=== PATIENT | male | born 1995 | race Caucasian/White ===

== ENCOUNTER 2016-12-27 20:21 | Emergency (ER) | payer OTHER ==
--- NOTE | 2016-12-27 21:40 | ER NURSING DOCUMENTATION ---
Nurse's Notes [facility] Name:Gareth Jean Age:21 yrs Sex:Male :1995 Arrival Date:12/27/2016 Time:20:21 Bed6 Private MD:Physician, No Diagnosis:Lower Extremity Pain Presentation: 12/27 20:27 Presenting complaint: Patient states: Left holden pain for 8 days without trauma. cb Transition of care: Home. 20:27 Method Of Arrival: Private Vehicle cb 20:27 Acuity: DAJA 4 cb Triage Assessment: 20:31 General: Appears in no apparent distress, well groomed, Behavior is cooperative. Pain: cb Complains of pain in right holden Pain currently is 6 out of 10 on a pain scale. Alleviated by rest, Aggravated by exercise, increased activity. EENT: No deficits noted. Neuro: Level of Consciousness is awake, alert, Oriented to person, place, time, event. Cardiovascular: Pulses are 2+ in left dorsalis pedis artery. Respiratory: Airway is patent Trachea midline Respiratory effort is even, unlabored, Respiratory pattern is regular, symmetrical. GI: Reports tolerance of fluids, tolerance of food. : No deficits noted. Derm: No deficits noted. Injury Description: none injury. Historical: - Allergies: No known drug Allergies; - Home Meds: 1. None - PMHx: HEADACHES; - PSHx: wisdom teeth ; broken leg (2009); - Tetanus: < 10 years. - Ebola Screening: : Patient negative for fever greater than or equal to 101.5 degrees Fahrenheit, and additional compatible Ebola Virus Disease symptoms. Patient denies exposure to infectious person. Patient denies travel to an Ebola-affected area in the 21 days before illness onset. No symptoms or risks identified at this time. . - Immunization history: Flu Vaccine < 1 year. - Social history: Smoking status: Patient states was never smoker of tobacco. Patient/guardian denies using marijuana. Screenin:35 Infectious Disease Risk None. Abuse screen: Denies threats or abuse. Denies injuries cb from another. Nutritional screening: No deficits noted. Vital Signs: 20:29 BP 140 / 80; Pulse 72; Resp 12; Temp 98.6(O); Pulse Ox 95% on R/A; Weight 83.91 kg (R); arc Height 6 ft. 1 in. (185.42 cm) (R); Pain 6/10; 20:29 Body Mass Index 24.41 (83.91 kg, 185.42 cm) arc ED Course: 20:25 Patient arrived in ED. em2 20:25 Physician, No is Private Physician. em2 20:27 Elana Anton, RN is Primary Nurse. cb 20:28 Triage completed. cb 20:35 Valuables Remains with patient Patient has correct armband on for positive cb identification. Bed in low position. Call light in reach. 20:36 Maximo Dorado MD is Attending Physician. dorothea 20:41 Port Xray Completed. pm1 21:14 Mamadou Ly MD, Vijay Dotson DO is Referral Physician. dorothea Administered Medications: No medications were administered Outcome: 21:14 Discharge ordered by . 21:38 Discharged to home ambulatory. bw2 21:38 Condition: good 21:38 Discharge Assessment: Patient awake, alert and oriented x 3. No cognitive and/or functional deficits noted. Patient verbalized understanding of disposition instructions. 21:38 Discharge instructions given to patient, Instructed on discharge instructions, follow up and referral plans. [facility] Demonstrated understanding of instructions. 21:39 Patient left the ED. bw2 12/28 12:11 Discharge F/U Call: Unable to reach: no answer lp Signatures: Elana Anton, RN Rebecca Perez cb, RN RN lp Maximo Dorado MD MD jm McBride, Philisha pm1 Meinking-reg, Alissa-reg em2 Argelia Jimenez, Reg Reg Nikki Olguin bw2
--- NOTE | 2016-12-27 21:40 | ER PHYSICIAN DOCUMENTATION ---
Physician Documentation [facility] Name:Gareth Jean Age:21 yrs Sex:Male :1995 Arrival Date:12/27/2016 Time:20:21 Bed6 Private MD:Physician, No ED Maximo Block Disposition: 12/27/16 21:14 Discharged to Home/Self Care. Impression: Lower Extremity Pain. - Condition is Good. - Medical Reconciliation form form. - Follow up: Mamadou Ly MD, Vijay Dotson DO; When: 1 - 2 days; Reason: Continuance of care. - Problem is an ongoing problem. - Symptoms are unchanged. - Notes: I feel you either have holden splints or a stres fracture. Follow up with Dr. Ly or Dr. Dotson. Ice, elevate and rest. Use ibuprofen for pain. HPI: 12/27 21:00 This 21 yrs old Unknown Male presents to ER via Private Vehicle with complaints of Leg jm Pain - left. 21:00 The patient presents with pain. The complaints affect the right holden. Context: the jm patient can fully bear weight, the patient is able to ambulate. Onset: The symptom(s)/episode began/occurred 8 day(s) ago. PT did a 10 mile hike and had some pain in his holden after. Pt continues to have pain in that holden. No injury. Pt swelling. No fever. . Historical: - Allergies: No known drug Allergies; - Home Meds: 1. None - PMHx: HEADACHES; - PSHx: wisdom teeth ; broken leg (2009); - Tetanus: < 10 years. - Ebola Screening: : Patient negative for fever greater than or equal to 101.5 degrees Fahrenheit, and additional compatible Ebola Virus Disease symptoms. Patient denies exposure to infectious person. Patient denies travel to an Ebola-affected area in the 21 days before illness onset. No symptoms or risks identified at this time. . - Immunization history: Flu Vaccine < 1 year. - Social history: Smoking status: Patient states was never smoker of tobacco. Patient/guardian denies using marijuana. ROS: 21:00 MS/extremity: Positive for tenderness, Negative for swelling. 21:00 Skin: Negative for cellulitis. Exam: 21:00 Constitutional: The patient appears alert, awake, comfortable. 21:00 Musculoskeletal/extremity: Extremities: grossly normal except: noted in the right holden: There is no evidence of decreased ROM, ecchymosis, erythema, pain, swelling, tenderness, ROM: intact in all extremities, Weight bearing: able to fully bear weight. 21:00 Skin: Appearance: normal except for affected area, cellulitis, is not appreciated. Vital Signs: 20:29 BP 140 / 80; Pulse 72; Resp 12; Temp 98.6(O); Pulse Ox 95% on R/A; Weight 83.91 kg (R); arc Height 6 ft. 1 in. (185.42 cm) (R); Pain 6/10; 20:29 Body Mass Index 24.41 (83.91 kg, 185.42 cm) arc MDM: 20:36 Patient medically screened. 22:46 Differential diagnosis: stress fx. holden splints. Data reviewed: vital signs, nurses jm notes, radiologic studies, and as a result, I will discharge patient. Test interpretation: by ED physician or midlevel provider: plain radiologic studies. Counseling: I had a detailed discussion with the patient and/or guardian regarding: the historical points, exam findings, and any diagnostic results supporting the discharge/admit diagnosis, radiology results, the need for outpatient follow up, 22:46 Counseling: I had a detailed discussion with the patient and/or guardian regarding: the need for outpatient follow up, a orthopedic surgeon. 12/29 13:48 Order name: TIBIA/FIBULA; 2V [place] [id number] EDMS Dispensed Medications: No medications were administered Signatures: Elana Anton RN RN cb Meyer, John, MD MD [facility]
--- NOTE | 2016-12-29 13:31 | RADIOLOGY REPORT ---
Two views of the left lower leg demonstrate no displaced fracture or other bony abnormality. Limited views of the joints are unremarkable. IMPRESSION: No displaced injury is identified. If clinically indicated, further evaluation and/or follow-up may be of benefit. ISAID
== END 2016-12-27 21:40 | disposition home or self-care (01) ==
LOC: ER 20:21
DX: M79.605 Pain in left leg (principal)
CPT/HCPCS: 99283